=== PATIENT | female | born 1970 | race Caucasian/White ===

== ENCOUNTER 2016-08-23 20:59 | Emergency (ER) | payer MEDICARE, OTHER ==
[~2016-08-23] VITALS: Ht 160 cm; Wt 61.8 kg
[~2016-08-23 20:59] MED LIST: ALPR.5 PO
[2016-08-23 21:14] VITALS: BP 124/86; PULSE 76; RESP 18; TEMP 97.8; O2SAT 100
[2016-08-23] MEDS ORDERED: VALA1TAB PO (21:43)
[2016-08-23] MEDS ORDERED: PRED5PAK PO (21:43)
[2016-08-23] MEDS ORDERED: AUGM875T3 PO (21:43)
--- NOTE | 2016-08-23 22:07 | PD ---
HPI Chief Complaint: Skin Problem Time Seen by Provider: 21:54 Travel History International Travel<30 days: No Contact w/Intl Traveler<30days: No Traveled to known affect area: No History of Present Illness HPI Patient is a 46-year-old female presents to emergency Department with left- sided face pain for approximately the past 4872 hours. Patient states she was in [place] recently when she had onset of pain in the left side of her face. She went to an urgent care center and explained to them how she had noticed some pimples on the left side of her nose. She states that she has not had an overt outbreak of vesicular rash. The physician she saw the urgent care center told her that it could be shingles or trigeminal neuralgia or cellulitis. She was started on valacyclovir as well as low-dose prednisone pack. Patient also discovered some Augmentin she had in her closet from sinusitis she had in July which she did not take and started taking that this morning. She was told by the physician to come to the emergency department she have any eye problems and she states that there was some mild swelling over her left eye and so decided to come in and be seen. No fevers no abdominal pain no nausea vomiting no difficulty with vision. While examining the patient she states the pain comes on in waves and very intense for a few seconds at a time. PFSH Past Medical History Anxiety: Yes Cancer: No Cardiovascular Problems: No Diabetes: No ("PRE- DAIBETIC") Diminished Hearing: No Gastrointestinal Disorders: Yes ("stomach infection") Genitourinary: Yes (pylonephritits) Immune Disorder: No Implanted Vascular Access Dvce: Yes Musculoskeletal: No Neurologic: No Psychiatric: No Reproductive: No Respiratory: No Immunizations Current: Yes Thyroid Disease: Yes ("sometimes hypo, sometimes hyper") Tetanus Vaccination: > 5 Years Influenza Vaccination: No ?: Not LMP: 08-23- : 2 Para: 2 Past Surgical History Body Medical Devices: LEFT BREAST CLIP Section: Yes Gynecologic Surgery: Yes (C SECTION X2) Thoracic Surgery: Yes (BL BREAST AUGMENTATION) Other Surgery: Yes (BREAST AUGMENTATION 2001) Social History Alcohol Use: No Tobacco Use: No Substance Use: No Allergies-Medications (Allergen,Severity, Reaction): Coded Allergies: Bactrim (Verified Allergy, Severe, TONGUE SWELLING, DIZZINESS, 08/23/16) Iodine (Verified Allergy, Severe, PASSED OUT / DIFFICULTY BREATHING / N& V , 08/23/16) Macrobid (Verified Allergy, Intermediate, 08/23/16) Benadryl (Verified Adverse Reaction, Severe, NUMBNESS IN LEGS, 08/23/16) Percocet (Verified Adverse Reaction, Severe, PUTS PT INTO "DEEP SLEEP", ) Reported Meds & Prescriptions Reported Meds & Active Scripts Active Ultram (Tramadol HCl) 50 Mg Tab 50 Mg PO Q6H PRN Prednisone 20 Mg Tab 60 Mg PO DAILY 5 Days Reported Valacyclovir (Valacyclovir HCl) 1 Gm Tab 1,000 Mg PO TID Augmentin (Amoxicillin-Clavulanate) 875-125 Mg Tab 1 Tab PO BID Xanax (Alprazolam) Unknown Strength Tab Unknown Dose PO Q4H PRN Review of Systems Except as stated in HPI: all other systems reviewed are Neg Physical Exam Narrative GENERAL: Well-nourished, well-developed patient. SKIN: No lesion no pimple no comedone no vesicle seen on her face. No Padgett sign. I see no rash and I see no edema of her face. HEAD: Normocephalic. Atraumatic EYES: No scleral icterus. No injection or drainage. No floor seen uptake, no scleral injection, neck shock movements are intact. ENT: TMs clear bilaterally, oropharynx clear moist. NECK: Supple, trachea midline. No JVD or lymphadenopathy. CARDIOVASCULAR: Regular rate and rhythm without murmurs, gallops, or rubs. RESPIRATORY: Breath sounds equal bilaterally. No accessory muscle use. GASTROINTESTINAL: Abdomen soft, non-tender, nondistended. MUSCULOSKELETAL: No cyanosis, or edema. BACK: Nontender without obvious deformity. No CVA tenderness. Data Data Last Documented VS Vital Signs Date Time Temp Pulse Resp B/P Pulse Ox O2 Delivery O2 Flow Rate FiO2 08/23/16 22:58 75 18 120/80 98 08/23/16 21:14 97.8 Orders Proparacaine 0.5% Opth Soln (Alcaine 0.5 (08/23/16 22:15) Fluorescein Strip (Jwgex-X-Vsklzm A.T.) (08/23/16 22:15) Tramadol (Ultram) (08/23/16 22:45) MDM Medical Decision Making Medical Screen Exam Complete: Yes Emergency Medical Condition: Yes Differential Diagnosis Facial pain, trigeminal neuralgia, shingles prodrome seems less likely, dental pain, jaw pain. Narrative Course The time of the patient's pain would suggest a trigeminal neuralgia or TMJ favored over a shingles outbreak. Patient's eye was stained and does not show any evidence of shingles of the eye, there is no dendritic pattern. No ulcer. The patient was started on a 5 mg prednisone dose pack which I think is inadequate whether were dealing with trigeminal neuralgia or shingles prodrome. I have instructed her to discontinue this after the first 10 mg she took today. She will be started on 60 mg daily for the next 5 days. I have checked the Augmentin and there is a 10 day supply remaining and counseled her to go ahead and take this because it is not . Valacyclovir should also be taken. I recommend that she follow up with neurologist and her primary care physician. Discussed return to ED criteria. We'll also prescribe some pain medicine. Discussed with her to take caution and take the tramadol separate from her Xanax for the first dose to see how it affects her before she combines it to medicines. She stable for discharge at this time. Diagnosis Primary Impression: Facial pain Referrals: Geovanny Callahan PhD Med/Other Pt SpecificInfo: Prescription(s) given Scripts Tramadol (Ultram)50 Mg Tab50 Mg PO Q6H PRN (PAIN) #12 TAB Ref 0 Prov:Geoff Goetz MD 08/23/16 Prednisone 20 Mg Tab60 Mg PO DAILY 5 Days Ref 0 Prov:Geoff Goetz MD 08/23/16 Disposition: 01 DISCHARGE HOME Condition: Stable Geoff Goetz MD Aug 23, 2016 22:07
[2016-08-23] MEDS ORDERED: FLUORESCEIN SOD 1 MG STRIP EACH EYE ONE (22:15)
[2016-08-23] MEDS ORDERED: PROPARACAINE HCL 0.5% OPHT SOLN 15 ML BTL EACH EYE ONE (22:15)
[2016-08-23] MEDS ORDERED: PRED20 PO (22:33)
[2016-08-23] MEDS ORDERED: ULTR50TA5 PO (22:33)
[2016-08-23] MEDS ORDERED: traMADol HCL 50 MG TAB PO ONE (22:45)
[2016-08-23 22:58] VITALS: BP 120/80
== END 2016-08-23 23:30 | disposition home or self-care (01) ==
LOC: PHED 20:59
DX: R51 Headache (principal); R73.03 Prediabetes; E07.9 Disorder of thyroid, unspecified
CPT/HCPCS: 99284

== ENCOUNTER 2017-01-11 00:01 | Emergency (ER) | payer MEDICARE, OTHER ==
[~2017-01-11] VITALS: Ht 160 cm; Wt 63.0 kg
[~2017-01-11 00:01] MED LIST changes: +AUGM875T3 PO; +FLUC150T PO; +PRED20 PO; +TERC0.8C VAGINAL; +TRAM50 PO; +VALA1TAB PO
[2017-01-11 00:06] VITALS: BP 97/56; PULSE 89; RESP 16; TEMP 98.2; O2SAT 99
[2017-01-11] MEDS ORDERED: SODIUM CHLORIDE 0.9% FLUSH 10 ML FLUSH IVF PRN (01:45)
[2017-01-11 01:50] VITALS: BP 100/55; PULSE 90; RESP 16; TEMP 98.9; O2SAT 99
--- NOTE | 2017-01-11 02:24 | RADRPT ---
EXAM DATE/TIME: 01/11/2017 01:51 [facility] COMPARISON: CHEST SINGLE AP, June 14, 2013, 1:33. INDICATIONS : Chest pain. MEDICAL HISTORY : None. SURGICAL HISTORY : Breast augmentation. ENCOUNTER: Initial ACUITY: 1 day PAIN SCORE: 0/10 LOCATION: Bilateral chest FINDINGS: A single view of the chest demonstrates the lungs to be symmetrically aerated without evidence of mas s, infiltrate or effusion. The cardiomediastinal contours are unremarkable. Osseous structures are intact. CONCLUSION: 1. No acute cardiopulmonary disease. Robert Chamberlain MD on January 11, 2017 at 2:22 Board Certified Radiologist. This report was verified electronically.
--- NOTE | 2017-01-11 02:27 | PD ---
HPI Chief Complaint: Anxiety Time Seen by Provider: 01:43 Travel History International Travel<30 days: No Contact w/Intl Traveler<30days: No Traveled to known affect area: No History of Present Illness HPI 46-year-old female presents to the emergency department by EMS transport from home where she was noted to have palpitations and rapid heartbeat that awakened her from sleep. Patient states that she went to bed approximately 10:30 PM feeling well and took her normal dose of Xanax. Patient states she awakened from sleep around 11 feeling very anxious with her heart racing. Patient denies disturbance confusion difficulty with speech difficulty swallowing and no upper or lower extremity motor weakness but did notice perioral paresthesias and numbness and tingling of the hands and feet. Patient has history of anxiety and does check Xanax or Ativan as prescribed for anxiety. No recent febrile illness or risk. Illness. Patient has been evaluated before for anxiety with rapid heartbeat. Patient's had no change in her medications. Patient denies chest pain or shortness of breath. Patient denies nausea or vomiting. Patient's had no diaphoresis. Patient's had no referred neck jaw back shoulder arm or abdominal pain. Patient denies hyperthyroidism. PFSH Past Medical History Narrative Medical Anxiety breast augmentation; no tobacco use alcohol use or substance use; nursing notes reviewed Anxiety: Yes Cancer: No Cardiovascular Problems: No Diminished Hearing: No Gastrointestinal Disorders: Yes ("stomach infection") Genitourinary: Yes (pylonephritits) Immune Disorder: No Implanted Vascular Access Dvce: Yes Musculoskeletal: No Neurologic: No Psychiatric: No Reproductive: No Respiratory: No Immunizations Current: Yes Thyroid Disease: Yes ("sometimes hypo, sometimes hyper") ?: Not LMP: 12/29/16 : 2 Para: 2 Past Surgical History Body Medical Devices: LEFT BREAST CLIP Section: Yes Gynecologic Surgery: Yes (C SECTION X2) Thoracic Surgery: Yes (BL BREAST AUGMENTATION) Other Surgery: Yes (BREAST AUGMENTATION 2001) Social History Alcohol Use: No Tobacco Use: No Substance Use: No Allergies-Medications (Allergen,Severity, Reaction): Coded Allergies: acetaminophen (Verified Allergy, Severe, 01/11/17) Sulfa (Sulfonamide Antibiotics) (Verified Allergy, Intermediate, 01/11/17) nitrofurantoin (Verified Allergy, Intermediate, 01/11/17) oxycodone (Verified Allergy, Intermediate, 01/11/17) PUTS PT TO SLEEP sulfamethoxazole (Verified Allergy, Intermediate, 01/11/17) trimethoprim (Verified Allergy, Intermediate, 01/11/17) iodine (Verified Allergy, Unknown, 01/11/17) Reported Meds & Prescriptions Reported Meds & Active Scripts Active Reported Xanax (Alprazolam) Unknown Strength Tab Unknown Dose PO Q4H PRN Review of Systems Except as stated in HPI: all other systems reviewed are Neg General / Constitutional: No: Fever, Chills Eyes: No: Diploplia, Blurred Vision, Photophobia HENT: No: Headaches, Vertigo, Lightheadedness, Neck Pain Cardiovascular: Positive: Palpitations, Tachycardia, No: Chest Pain or Discomfort, Diaphoresis, Syncope Respiratory: No: Cough, Shortness of Breath Gastrointestinal: No: Nausea, Vomiting, Abdominal Pain Genitourinary: No: Flank Pain Musculoskeletal: No: Myalgias, Arthralgias Skin: No Rash Neurologic: No: Weakness, Dizziness, Syncope, Focal Abnormalities, Coordination Problem Psychiatric: No: Anxiety Endocrine: No: Heat Intolerance Hematologic/Lymphatic: No: Easy Bruising Physical Exam Narrative GENERAL: Well-developed well-nourished female in no acute distress no respiratory distress SKIN: Warm and dry. HEAD: Atraumatic. Normocephalic. EYES: Pupils equal and round. No scleral icterus. No injection or drainage. ENT: No nasal bleeding or discharge. Mucous membranes pink and moist. NECK: Trachea midline. No JVD. CARDIOVASCULAR: Regular rate and rhythm. RESPIRATORY: No accessory muscle use. Clear to auscultation. Breath sounds equal bilaterally. GASTROINTESTINAL: Abdomen soft, non-tender, nondistended. Hepatic and splenic margins not palpable. MUSCULOSKELETAL: Extremities without clubbing, cyanosis, or edema. No obvious deformities. NEUROLOGICAL: Awake and alert. No obvious cranial nerve deficits. Motor grossly within normal limits. Five out of 5 muscle strength in the arms and legs. Normal speech. PSYCHIATRIC: Appropriate mood and affect; insight and judgment normal. Data Data Last Documented VS Vital Signs Date Time Temp Pulse Resp B/P (MAP) Pulse Ox O2 Delivery O2 Flow Rate FiO2 01/11/17 05:04 80 16 111/82 (92) 100 01/11/17 01:50 98.9 Room Air Orders Orders Electrocardiogram (01/11/17 01:43) Ed Urine Pregnancytest Poc (01/11/17 01:43) Complete Blood Count With Diff (01/11/17:43) Comprehensive Metabolic Panel (01/11/17:43) Magnesium (Mg) (01/11/17:43) Ckmb (Isoenzyme) Profile (01/11/17:43) Troponin I (01/11/17:43) Act Partial Throm Time (Ptt) (01/11/17:43) Prothrombin Time / Inr (Pt) (01/11/17:43) Urinalysis - C+S If Indicated (01/11/17:43) Chest, Single Ap (01/11/17:43) Ecg Monitoring (01/11/17:43) Iv Access Insert/Monitor (01/11/17:43) Oximetry (01/11/17:43) Sodium Chloride 0.9% Flush (Ns Flush) (01/11/17 01:45) Thyroid Stimulating Hormone (01/11/17:43) Sodium Chlor 0.9% 1000 Ml Inj (Ns 1000 M (01/11/17 03:15) Ed Discharge Order (01/11/17 03:46) Labs Laboratory Tests Test 01/11/17 02:00 White Blood Count 5.8 TH/MM3 Red Blood Count 4.10 MIL/MM3 Hemoglobin 12.4 GM/DL Hematocrit 36.3 % Mean Corpuscular Volume 88.7 FL Mean Corpuscular Hemoglobin 30.1 PG Mean Corpuscular Hemoglobin Concent 34.0 % Red Cell Distribution Width 12.8 % Platelet Count 180 TH/MM3 Mean Platelet Volume 9.7 FL Neutrophils (%) (Auto) 52.4 % Lymphocytes (%) (Auto) 32.4 % Monocytes (%) (Auto) 9.4 % Eosinophils (%) (Auto) 4.5 % Basophils (%) (Auto) 1.3 % Neutrophils # (Auto) 3.0 TH/MM3 Lymphocytes # (Auto) 1.9 TH/MM3 Monocytes # (Auto) 0.5 TH/MM3 Eosinophils # (Auto) 0.3 TH/MM3 Basophils # (Auto) 0.1 TH/MM3 CBC Comment DIFF FINAL Differential Comment Prothrombin Time 10.7 SEC Prothromb Time International Ratio 1.0 RATIO Activated Partial Thromboplast Time 29.4 SEC Urine Color STRAW Urine Turbidity CLEAR Urine pH 6.5 Urine Specific [place] 1.008 Urine Protein NEG mg/dL Urine Glucose (UA) NEG mg/dL Urine Ketones NEG mg/dL Urine Occult Blood NEG Urine Nitrite NEG Urine Bilirubin NEG Urine Leukocyte Esterase NEG Urine Squamous Epithelial Cells 0-5 /hpf Urine Bacteria OCC /hpf Microscopic Urinalysis Comment CULT NOT INDICATED Urine Collection Time Blood Urea Nitrogen 19 MG/DL Creatinine 0.73 MG/DL Random Glucose 87 MG/DL Total Protein 6.8 GM/DL Albumin 3.4 GM/DL Calcium Level 8.4 MG/DL Magnesium Level 2.1 MG/DL Alkaline Phosphatase 46 U/L Aspartate Amino Transf (AST/SGOT) 10 U/L Alanine Aminotransferase (ALT/SGPT) 18 U/L Total Bilirubin 0.2 MG/DL Sodium Level 139 MEQ/L Potassium Level 3.6 MEQ/L Chloride Level 107 MEQ/L Carbon Dioxide Level 26.2 MEQ/L Anion Gap 6 MEQ/L Estimat Glomerular Filtration Rate 87 ML/MIN Total Creatine Kinase 51 U/L Troponin I LESS THAN 0.02 NG/ML Thyroid Stimulating Hormone 3rd Gen 2.270 uIU/ML MDM Medical Decision Making Medical Screen Exam Complete: Yes Emergency Medical Condition: Yes Medical Record Reviewed: Yes Interpretation(s) EKG: Normal sinus rhythm rate [address] elevation injury pattern or ectopy noted Last Impressions Chest X-Ray 01/11/17 0143 Signed Impressions: Service Date/Time: Wednesday, January 11, 2017 01:51 - CONCLUSION: 1. No acute cardiopulmonary disease. Robert Chamberlain MD CBC & BMP Diagram 01/11/17 02:00 Total Protein 6.8, Albumin 3.4, Calcium Level 8.4 L, Magnesium Level 2.1, Alkaline Phosphatase 46, Aspartate Amino Transf (AST/SGOT) 10 L, Alanine Aminotransferase (ALT/SGPT) 18, Total Bilirubin 0.2 Differential Diagnosis Palpitations arrhythmia electrolyte disturbance dehydration adverse medication reaction Narrative Course IV access obtained specimens collected and sent for resulting patient placed on pvc monitor with continuous pulse oximetry EKG sinus rhythm no acute injury pattern change or ectopy noted Chest x-ray no acute process Cardiac enzymes are not elevated; TSH found to be in normal range Patient identified to have significant change in heart rate moving some supine to standing therefore given IV fluid bolus Patient clinically stable for outpatient management and follow-up with her primary care provider Diagnosis Primary Impression: Rapid palpitations Additional Impressions: H/O anxiety state Dehydration, mild Referrals: Primary Care Physician 2 days Patient Instructions: General Instructions Additional Instructions: Increase fluid hydration Continue current medications as presently prescribed Follow-up with her primary care provider call office to schedule follow-up appointment Return to the emergency department for any concerns or change in condition Med/Other Pt SpecificInfo: No Meds Exist/No RX given Disposition: 01 DISCHARGE HOME Condition: Stable Carolyn Bermudez MD Jan 11, 2017 02:27
[2017-01-11 02:33] LABS: BASOPHIL # 0.1 TH/MM3 (0-0.2); BASOPHIL % 1.3 % (0.0-2.0); EOSINOPHIL # 0.3 TH/MM3 (0-0.4); EOSINOPHIL % 4.5 % (0.0-4.0); HEMATOCRIT 36.3 % (35.0-46.0); HEMO FLAGS DIFF FINAL; LYMPH % 32.4 % (9.0-44.0); LYMPHOCYTE # 1.9 TH/MM3 (1.0-4.8); MEAN CELL VOLUME 88.7 FL (80.0-100.0); MEAN CORPUSCULAR HEMOGLOBIN 30.1 PG (27.0-34.0); MONO % 9.4 % (0.0-8.0); NEUT % 52.4 % (16.0-70.0); PLATELET COUNT 180 TH/MM3 (150-450); RED CELL DISTRIBUTION WIDTH 12.8 % (11.6-17.2); WHITE BLOOD COUNT 5.8 TH/MM3 (4.0-11.0)
[2017-01-11 02:38] LABS: CHLORIDE 107 MEQ/L (98-107); POTASSIUM 3.6 MEQ/L (3.5-5.1); SODIUM (NA) 139 MEQ/L (136-145)
[2017-01-11 02:42] LABS: ANION GAP 6 MEQ/L (5-15); BICARBONATE 26.2 MEQ/L (21.0-32.0); BLOOD UREA NITROGEN 19 MG/DL (7-18); MAGNESIUM 2.1 MG/DL (1.5-2.5)
[2017-01-11 02:43] LABS: APTT (PATIENT) 29.4 SEC (24.3-30.1); PROTHROMBIN TIME - PATIENT 10.7 SEC (9.8-11.6)
[2017-01-11 02:45] LABS: ALT (GPT) 18 U/L (10-53); AST (GOT) 10 U/L (15-37); GLOMERULAR FILTRATION RATE 87 ML/MIN (>89)
[2017-01-11 02:46] LABS: TOTAL BILIRUBIN ADULT 0.2 MG/DL (0.2-1.0)
[2017-01-11 02:48] LABS: ALKALINE PHOSPHATASE 46 U/L (45-117)
[2017-01-11 02:51] LABS: BLOOD, URINE NEG (NEG); GLUCOSE,URINE NEG (NEG); KETONE, URINE NEG (NEG); NITRITE,URINE NEG (NEG); PH, URINE 6.5 (5.0-8.5)
[2017-01-11 02:56] LABS: URINE COLOR STRAW (YELLW/STRAW)
[2017-01-11 02:57] LABS: BACTERIA, URINE OCC /hpf; SQUAMOUS EPITHELIAL CELL URINE 0-5 /hpf (0-5)
[2017-01-11 02:58] LABS: COMMENT (UR) CULT NOT INDICATED; CULTURE IF INDICATED CULT NOT INDICATED
[2017-01-11 02:59] LABS: CREATINE KINASE 51 U/L (26-192)
[2017-01-11] MEDS ORDERED: SODIUM CHLOR 0.9% 1000 ML INJ 1,000 ML IV ONE (03:15)
[2017-01-11 03:22] VITALS: BP_SYST 100; BP_SYST 90; BP_SYST 96; BP_DIAS 61; BP_DIAS 69; BP_DIAS 75; RESP 16
[2017-01-11 05:04] VITALS: BP 111/82
--- NOTE | 2017-01-11 18:49 | EKG ---
Date Performed: 01/11/2017 Time Performed: 02:08:01 PTAGE: 46 years EKG: Sinus rhythm WITH MARKED SINUS ARRHYTHMIA BORDERLINE ECG Compared to prior tracing no significant change PREVIOUS TRACING : 06/14/2013 08.34 DOCTOR: Kelsey Benoit Interpretating Date/Time 01/11/2017 18:48:45
== END 2017-01-11 05:07 | disposition home or self-care (01) ==
LOC: PHED 00:01
DX: R00.2 Palpitations (principal); F41.1 Generalized anxiety disorder; E86.0 Dehydration
CPT/HCPCS: 71010; 80053; 81001; 82550; 83735; 84443; 84484; 84703; 85025; 85610; 85730; 93005; 96360; 99285; J7030

== ENCOUNTER 2017-01-24 21:44 | Emergency (ER) | payer MEDICARE, OTHER ==
[~2017-01-24 21:44] MED LIST changes: -AUGM875T3 PO; -FLUC150T PO; -PRED20 PO; -TERC0.8C VAGINAL; -TRAM50 PO; -VALA1TAB PO
[2017-01-24 22:24] VITALS: BP 126/83; PULSE 96; RESP 16; TEMP 98.4; O2SAT 98
--- NOTE | 2017-01-24 22:27 | PD ---
HPI Chief Complaint: Anxiety Time Seen by Provider: 22:12 Travel History International Travel<30 days: No Contact w/Intl Traveler<30days: No Traveled to known affect area: No History of Present Illness HPI 46-year-old female with history of PTSD, anxiety disorder, panic attacks, brought in by ambulance from an inpatient facility where the patient presented voluntarily today for help with her PTSD for evaluation of a panic attack. Patient reports that she takes Xanax prescribed by her primary care physician. She is prescribed 0.5 mg 3 times a day, however states that she usually takes about 0.25 mg 3 times a day. States that her last dose was about 8 hours prior to this attack. She tells me that the facility that she checked herself into is also a rehabilitation facility, therefore does not provide Xanax to their patients. Patient denies suicidal ideation. She is complaining of a slight headache and is requesting some Advil. PFSH Past Medical History Anxiety: Yes (SEVERE, PANIC ATTACKS) Cancer: No Cardiovascular Problems: No Diminished Hearing: No Gastrointestinal Disorders: Yes ("stomach infection") Genitourinary: Yes (pylonephritits) Immune Disorder: No Implanted Vascular Access Dvce: Yes Musculoskeletal: No Neurologic: No Psychiatric: No Reproductive: No Respiratory: No Immunizations Current: Yes Thyroid Disease: Yes ("sometimes hypo, sometimes hyper") ?: Unknown : 2 Para: 2 Past Surgical History Body Medical Devices: LEFT BREAST CLIP Section: Yes Gynecologic Surgery: Yes (C SECTION X2) Thoracic Surgery: Yes (BL BREAST AUGMENTATION) Other Surgery: Yes (BREAST AUGMENTATION 2001) Social History Alcohol Use: No Tobacco Use: No Substance Use: No Allergies-Medications (Allergen,Severity, Reaction): Coded Allergies: acetaminophen (Verified Allergy, Severe, 01/11/17) Sulfa (Sulfonamide Antibiotics) (Verified Allergy, Intermediate, 01/11/17) nitrofurantoin (Verified Allergy, Intermediate, 01/11/17) oxycodone (Verified Allergy, Intermediate, 01/11/17) PUTS PT TO SLEEP sulfamethoxazole (Verified Allergy, Intermediate, 01/11/17) trimethoprim (Verified Allergy, Intermediate, 01/11/17) iodine (Verified Allergy, Unknown, 01/11/17) Reported Meds & Prescriptions Reported Meds & Active Scripts Active Reported Xanax (Alprazolam) Unknown Strength Tab 0.25 PO Q4H PRN Review of Systems Except as stated in HPI: all other systems reviewed are Neg Physical Exam Narrative GENERAL: Well-developed, well-nourished, comfortable, no apparent distress. SKIN: Focused skin assessment warm/dry. HEAD: Atraumatic. Normocephalic. EYES: Pupils equal and round. No scleral icterus. No injection or drainage. ENT: Mucous membranes pink and moist. NECK: Trachea midline. No JVD. CARDIOVASCULAR: Regular rate and rhythm. No murmur appreciated. RESPIRATORY: No accessory muscle use. Clear to auscultation. Breath sounds equal bilaterally. GASTROINTESTINAL: Abdomen soft, non-tender, nondistended. Hepatic and splenic margins not palpable. MUSCULOSKELETAL: No obvious deformities. No clubbing. No cyanosis. No edema. NEUROLOGICAL: Awake and alert. No obvious cranial nerve deficits. Motor grossly within normal limits. Normal speech. PSYCHIATRIC: Appropriate mood and affect; insight and judgment normal. Data Data Last Documented VS Vital Signs Date Time Temp Pulse Resp B/P (MAP) Pulse Ox O2 Delivery O2 Flow Rate FiO2 01/25/17 00:32 88 19 123/90 (101) 98 Room Air 01/24/17 22:24 98.4 Orders Orders Alprazolam (Xanax) (01/24/17 22:30) Ibuprofen (Motrin) (01/24/17 22:30) Acetaminophen (Tylenol) (01/25/17 00:30) [facility] Medical Decision Making Medical Screen Exam Complete: Yes Emergency Medical Condition: Yes Medical Record Reviewed: Yes Differential Diagnosis Panic attack, anxiety Narrative Course Initial vital signs show heart rate 96, blood pressure 126/83, pulse ox 98% on room air, oral temp of 98.4F. Patient was provided Xanax with improvement in her anxiety. While in the emergency department she complained of having a headache. She was written for ibuprofen, however she only took off of it because she was afraid that it might upset her stomach. She continued to complain of a headache, so she was given Tylenol. On reassessment she was sleeping comfortably. There is no nuchal rigidity on exam. She overall looks very comfortable and not believe that there is an infectious etiology or an SAH as the etiology for her headache. The patient seems very concerned about going back to the facility which she voluntarily checked into has they are not providing her Xanax. She asked if I could dispense a dose of Xanax, however I told her I could not. At this point I believe the patient is stable for discharge back to the facility where she is seeking help for her anxiety/PTSD. Diagnosis Primary Impression: Panic attack Referrals: Primary Care Physician 3 days Disposition: 65 DISC TO PSYCH CARE FACILITY Condition: Stable Fredy Fuentes MD Jan 24, 2017 22:27
[2017-01-24] MEDS ORDERED: IBUPROFEN 600 MG TAB PO ONE (22:30)
[2017-01-24] MEDS ORDERED: ALPRAZolam 0.5 MG TAB PO ONE (22:30)
[2017-01-25] MEDS ORDERED: ACETAMINOPHEN 325 MG TAB PO ONE (00:30)
[2017-01-25 00:32] VITALS: BP_SYST 123; BP_SYST 127; BP_DIAS 82; BP_DIAS 90; PULSE 88; PULSE 92; RESP 19; O2SAT 98; O2SAT 99
== END 2017-01-25 01:20 ==
LOC: NEPD 21:44
DX: F41.0 Panic disorder [episodic paroxysmal anxiety] (principal); R51 Headache; F43.10 Post-traumatic stress disorder, unspecified; F41.9 Anxiety disorder, unspecified; E07.9 Disorder of thyroid, unspecified; Z79.899 Other long term (current) drug therapy; Z88.6 Allergy status to analgesic agent; Z88.2 Allergy status to sulfonamides; Z88.5 Allergy status to narcotic agent
CPT/HCPCS: 99283

== ENCOUNTER 2017-02-21 05:43 | Emergency (ER) | payer MEDICARE, OTHER ==
[~2017-02-21] VITALS: Ht 160 cm; Wt 65.0 kg
[2017-02-21 05:46] VITALS: BP 135/84; PULSE 84; RESP 20; TEMP 98.9; O2SAT 98
[2017-02-21] MEDS ORDERED: SODIUM CHLOR 0.9% 1000 ML INJ 1,000 ML IV ONE (06:22)
[2017-02-21] MEDS ORDERED: SODIUM CHLORIDE 0.9% FLUSH 10 ML FLUSH IVF PRN (06:30)
[2017-02-21] MEDS ORDERED: ONDANSETRON HCL 4 MG/2 ML VIAL IVP ONE (06:30)
[2017-02-21] MEDS: MECLIZINE HCL 25 MG TAB PO ONE ×2 (06:30→06:48)
--- NOTE | 2017-02-21 06:30 | PD ---
HPI Chief Complaint: Dizziness Time Seen by Provider: 05:54 Travel History International Travel<30 days: No Contact w/Intl Traveler<30days: No Traveled to known affect area: No History of Present Illness HPI 46-year-old female arrives to the ER due to dizziness. It started yesterday evening. She has been tapering down her Xanax dosing from 1.5 mg a day to 0.5 mg a day. She reports taking 0.25 mg just prior to leaving her house for the ER evaluation and states that it has been somewhat helpful. She describes a vertiginous dizziness associated with nausea and vomiting. No otalgia or otorrhea reported. No chest pain or shortness of breath reported. She denies similar prior episodes of vertigo. No loss of consciousness or falls. PFSH Past Medical History Anxiety: Yes (SEVERE, PANIC ATTACKS) Cancer: No Cardiovascular Problems: No Diminished Hearing: No Gastrointestinal Disorders: Yes Genitourinary: Yes Immune Disorder: No Implanted Vascular Access Dvce: Yes Musculoskeletal: No Neurologic: No Psychiatric: No Reproductive: No Respiratory: No Immunizations Current: Yes Thyroid Disease: Yes (THYROID NODULE) ?: Not : 2 Para: 2 Past Surgical History Body Medical Devices: LEFT BREAST CLIP Section: Yes (X2) Gynecologic Surgery: Yes (C SECTION X2) Thoracic Surgery: Yes (BL BREAST AUGMENTATION) Other Surgery: Yes (BREAST AUGMENTATION 2001) Social History Alcohol Use: No Tobacco Use: No Substance Use: No Allergies-Medications (Allergen,Severity, Reaction): Coded Allergies: acetaminophen (Verified Allergy, Severe, 02/21/17) Sulfa (Sulfonamide Antibiotics) (Verified Allergy, Intermediate, 02/21/17) nitrofurantoin (Verified Allergy, Intermediate, 02/21/17) oxycodone (Verified Allergy, Intermediate, 02/21/17) PUTS PT TO SLEEP sulfamethoxazole (Verified Allergy, Intermediate, 02/21/17) trimethoprim (Verified Allergy, Intermediate, 02/21/17) iodine (Verified Allergy, Unknown, 02/21/17) Reported Meds & Prescriptions Reported Meds & Active Scripts Active Reported Xanax (Alprazolam) Unknown Strength Tab 0.25 PO Q4H PRN Review of Systems Except as stated in HPI: all other systems reviewed are Neg General / Constitutional: No: Fever Cardiovascular: No: Chest Pain or Discomfort Respiratory: No: Shortness of Breath Gastrointestinal: Positive: Nausea, Vomiting Physical Exam Narrative GENERAL: 46-year-old female pleasant well-nourished well-developed no acute distress SKIN: Warm and dry. HEAD: Atraumatic. Normocephalic. EYES: Pupils equal and round. No scleral icterus. No injection or drainage. No nystagmus. ENT: No nasal bleeding or discharge. Mucous membranes pink and moist. There is minimal cerumen collection bilaterally NECK: Trachea midline. No JVD. CARDIOVASCULAR: Regular rate and rhythm. RESPIRATORY: No accessory muscle use. Clear to auscultation. Breath sounds equal bilaterally. GASTROINTESTINAL: Abdomen soft, non-tender, nondistended. Hepatic and splenic margins not palpable. MUSCULOSKELETAL: Extremities without clubbing, cyanosis, or edema. No obvious deformities. NEUROLOGICAL: Awake and alert. No obvious cranial nerve deficits. Motor grossly within normal limits. Five out of 5 muscle strength in the arms and legs. Normal speech. PSYCHIATRIC: Appropriate mood and affect; insight and judgment normal. Data Data Last Documented VS Vital Signs Date Time Temp Pulse Resp B/P (MAP) Pulse Ox O2 Delivery O2 Flow Rate FiO2 02/21/17 06:48 100 Room Air 02/21/17 06:48 87 18 79 18 69 18 02/21/17 05:46 98.9 Vital signs reviewed Orders Orders Basic Metabolic Panel (Bmp) (02/21/17 06:22) Complete Blood Count With Diff (02/21/17 06:22) Ecg Monitoring (02/21/17 06:22) Iv Access Insert/Monitor (02/21/17 06:22) Oximetry (02/21/17 06:22) Meclizine (Antivert) (02/21/17 06:30) Ondansetron Inj (Zofran Inj) (02/21/17 06:30) Sodium Chloride 0.9% Flush (Ns Flush) (02/21/17 06:30) Sodium Chlor 0.9% 1000 Ml Inj (Ns 1000 M (02/21/17 06:22) Orthostatic Vital Signs (02/21/17 06:22) Labs Laboratory Tests Test 02/21/17 06:45 [facility] Medical Decision Making Medical Screen Exam Complete: Yes Emergency Medical Condition: Yes Medical Record Reviewed: Yes Differential Diagnosis Dehydration, vertigo, benzodiazepine withdrawal Narrative Course Symptoms are considered most probably secondary to Xanax withdrawal. Patient refuses benzodiazepines here, not unreasonable. We will administer a liter saline meclizine and Zofran. Lab work added on with the anticipation of the results being within normal range. Oncoming provider to follow-up blood results and disposition patient following reassessment. Case d/w oncoming provider at 7AM. Disposition: 01 DISCHARGE HOME Condition: Stable Jeovanny Felton MD Feb 21, 2017 06:30
[2017-02-21 06:48] VITALS: BP_SYST 108; BP_SYST 116; BP_SYST 121; BP_DIAS 67; BP_DIAS 70; BP_DIAS 73; RESP 18; O2SAT 100
[2017-02-21 06:56] LABS: AUTOMATED NEUTROPHIL # 1.4 TH/MM3 (1.8-7.7); BASOPHIL % 1.3 % (0.0-2.0); EOSINOPHIL # 0.3 TH/MM3 (0-0.4); EOSINOPHIL % 7.9 % (0.0-4.0); HEMATOCRIT 37.6 % (35.0-46.0); HEMOGLOBIN 12.9 GM/DL (11.6-15.3); LYMPH % 43.2 % (9.0-44.0); LYMPHOCYTE # 1.6 TH/MM3 (1.0-4.8); MEAN CELL VOLUME 89.2 FL (80.0-100.0); MEAN CORPUSCULAR HEMOGLOBIN 30.5 PG (27.0-34.0); MEAN CORPUSCULAR HGB CONC 34.2 % (32.0-36.0); MEAN PLATELET VOLUME 9.1 FL (7.0-11.0); MONO % 9.4 % (0.0-8.0); MONOCYTE # 0.4 TH/MM3 (0-0.9); NEUT % 38.2 % (16.0-70.0); PLATELET COUNT 183 TH/MM3 (150-450); RED BLOOD COUNT 4.22 MIL/MM3 (4.00-5.30); RED CELL DISTRIBUTION WIDTH 13.7 % (11.6-17.2); WHITE BLOOD COUNT 3.8 TH/MM3 (4.0-11.0)
[2017-02-21 07:09] LABS: BICARBONATE 28.8 MEQ/L (21.0-32.0); CALCIUM 8.7 MG/DL (8.5-10.1); CREATININE 0.68 MG/DL (0.50-1.00)
--- NOTE | 2017-02-21 07:30 | PD ---
Data Data Last Documented VS Orders Orders Basic Metabolic Panel (Bmp) (02/21/17 06:22) Complete Blood Count With Diff (02/21/17 06:22) Ecg Monitoring (02/21/17 06:22) Iv Access Insert/Monitor (02/21/17 06:22) Oximetry (02/21/17 06:22) Meclizine (Antivert) (02/21/17 06:30) Ondansetron Inj (Zofran Inj) (02/21/17 06:30) Sodium Chloride 0.9% Flush (Ns Flush) (02/21/17 06:30) Sodium Chlor 0.9% 1000 Ml Inj (Ns 1000 M (02/21/17 06:22) Orthostatic Vital Signs (02/21/17 06:22) Ed Discharge Order (02/21/17 07:45) Labs Laboratory Tests Test 02/21/17 06:45 White Blood Count 3.8 TH/MM3 Red Blood Count 4.22 MIL/MM3 Hemoglobin 12.9 GM/DL Hematocrit 37.6 % Mean Corpuscular Volume 89.2 FL Mean Corpuscular Hemoglobin 30.5 PG Mean Corpuscular Hemoglobin Concent 34.2 % Red Cell Distribution Width 13.7 % Platelet Count 183 TH/MM3 Mean Platelet Volume 9.1 FL Neutrophils (%) (Auto) 38.2 % Lymphocytes (%) (Auto) 43.2 % Monocytes (%) (Auto) 9.4 % Eosinophils (%) (Auto) 7.9 % Basophils (%) (Auto) 1.3 % Neutrophils # (Auto) 1.4 TH/MM3 Lymphocytes # (Auto) 1.6 TH/MM3 Monocytes # (Auto) 0.4 TH/MM3 Eosinophils # (Auto) 0.3 TH/MM3 Basophils # (Auto) 0.0 TH/MM3 CBC Comment DIFF FINAL Differential Comment Blood Urea Nitrogen 12 MG/DL Creatinine 0.68 MG/DL Random Glucose 108 MG/DL Calcium Level 8.7 MG/DL Sodium Level 137 MEQ/L Potassium Level 3.3 MEQ/L Chloride Level 101 MEQ/L Carbon Dioxide Level 28.8 MEQ/L Anion Gap 7 MEQ/L Estimat Glomerular Filtration Rate 94 ML/MIN [facility] Supervised Visit with UZAIR: No Narrative Course Patient care assumed from Dr. Felton at 0700. Patient on my examination and history has classic vertigo, highly positional. TMs are clear bilaterally, she is feeling better with medications administered, basic labs are reassuring. Remainder of her neurologic exam is completely within normal limits. No indication for further workup at this time. Discussed symptomatic management follow-up with her prescribing physician. Discussed return to ED criteria. Diagnosis Primary Impression: BPPV (benign paroxysmal positional vertigo) Qualified Codes: H81.10 - Benign paroxysmal vertigo, unspecified ear Med/Other Pt SpecificInfo: Prescription(s) given Scripts Meclizine (Meclizine) 25 Mg Tab 25 MG PO TID Y for VERTIGO, #20 TAB 0 Refills Prov: Geoff Goezt MD 02/21/17 Ondansetron (Zofran) 4 Mg Tab 4 MG PO Q6HR Y for NAUSEA OR VOMITING, #20 TAB 0 Refills Prov: Geoff Goetz MD 02/21/17 Disposition: 01 DISCHARGE HOME Condition: Stable Geoff Goetz MD Feb 21, 2017 07:30
[2017-02-21] MEDS ORDERED: ZOFR4TAB PO (07:43)
[2017-02-21] MEDS ORDERED: MECL-62 PO (07:43)
[2017-02-21 08:08] VITALS: BP 128/72
== END 2017-02-21 08:10 | disposition home or self-care (01) ==
LOC: NEPC 05:43
DX: H81.10 Benign paroxysmal vertigo, unspecified ear (principal)
CPT/HCPCS: 80048; 85025; 96361; 96374; 99284; J2405; J7030

== ENCOUNTER 2017-03-14 13:18 | Emergency (ER) | payer MEDICARE, OTHER ==
[~2017-03-14] VITALS: Ht 160 cm; Wt 64.0 kg
[~2017-03-14 13:18] MED LIST changes: +MECL-62 PO; +ZOFR4TAB PO
[2017-03-14 13:24] VITALS: BP 124/65; PULSE 84; RESP 16; TEMP 98.2; O2SAT 99
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
[2017-03-14] MEDS ORDERED: IBUP1TAB7 PO (15:04)
[2017-03-14] MEDS ORDERED: CYCL10TA PO (15:04)
== END 2017-03-14 15:11 | disposition home or self-care (01) ==
LOC: PHEFT 13:18
DX: S29.012A Strain of muscle and tendon of back wall of thorax, initial encounter (principal); Y04.0XXA Assault by unarmed brawl or fight, initial encounter; E04.1 Nontoxic single thyroid nodule; F41.0 Panic disorder [episodic paroxysmal anxiety]
CPT/HCPCS: 72125; 72128

== ENCOUNTER 2017-05-23 22:01 | Emergency (ER) | payer OTHER, MEDICARE ==
[~2017-05-23] VITALS: Ht 160 cm; Wt 65.3 kg
[~2017-05-23 22:01] MED LIST changes: +CYCL10TA PO; +IBUP1TAB7 PO; -MECL-62 PO; -ZOFR4TAB PO
[2017-05-23 22:11] VITALS: BP 123/68; PULSE 83; RESP 16; TEMP 98.8; O2SAT 98
--- NOTE | 2017-05-23 22:44 | PD ---
HPI Chief Complaint: Fall Time Seen by Provider: 22:35 Travel History International Travel<30 days: No Contact w/Intl Traveler<30days: No Traveled to known affect area: No History of Present Illness HPI 47-year-old female here for evaluation of low back pain, right wrist pain, and left knee pain after slipping on a slippery surface at [employer] this evening. She reenacted how she fell and it looks as though her left leg went forward, right leg went back, and her right hand hit the ground. She denies head injury or LOC. Pain is moderate, constant, worse with movements. No direct low back trauma. She was able to ambulate after the fall. She stopped at a drug store and picked up ibuprofen which she took prior to coming to the emergency department. [facility] Past Medical History Anxiety: Yes (SEVERE, PANIC ATTACKS) Cancer: No Cardiovascular Problems: No Diminished Hearing: No Gastrointestinal Disorders: Yes Genitourinary: Yes Immune Disorder: No Implanted Vascular Access Dvce: Yes Musculoskeletal: No Neurologic: No Psychiatric: No Reproductive: No Respiratory: No Immunizations Current: Yes Thyroid Disease: Yes (THYROID NODULE) Tetanus Vaccination: < 5 Years Influenza Vaccination: No ?: Unknown LMP: SPOTTING NOW : 2 Para: 2 Past Surgical History Body Medical Devices: LEFT BREAST CLIP Section: Yes (X2) Gynecologic Surgery: Yes (C SECTION X2) Thoracic Surgery: Yes (BL BREAST AUGMENTATION) Other Surgery: Yes (BREAST AUGMENTATION 2001) Social History Alcohol Use: No Tobacco Use: No Substance Use: No Allergies-Medications (Allergen,Severity, Reaction): Coded Allergies: acetaminophen (Verified Allergy, Severe, 03/14/17) Sulfa (Sulfonamide Antibiotics) (Verified Allergy, Intermediate, 03/14/17) nitrofurantoin (Verified Allergy, Intermediate, 03/14/17) oxycodone (Verified Allergy, Intermediate, 03/14/17) PUTS PT TO SLEEP sulfamethoxazole (Verified Allergy, Intermediate, 03/14/17) trimethoprim (Verified Allergy, Intermediate, 03/14/17) iodine (Verified Allergy, Unknown, 03/14/17) Reported Meds & Prescriptions Reported Meds & Active Scripts Active Flexeril (Cyclobenzaprine HCl) 10 Mg Tab 10 Mg PO TID Ibuprofen 800 Mg Tab 800 Mg PO Q8H PRN Reported Xanax (Alprazolam) Unknown Strength Tab 0.25 PO Q4H PRN Review of Systems Except as stated in HPI: all other systems reviewed are Neg Physical Exam Narrative GENERAL: Well-developed, well-nourished, comfortable, no apparent distress. SKIN: Focused skin assessment warm/dry. Mild ecchymosis to right lateral/ anterior wrist. No lacerations. HEAD: Atraumatic. Normocephalic. EYES: Pupils equal and round. No scleral icterus. No injection or drainage. ENT: Mucous membranes pink and moist. NECK: Trachea midline. No JVD. No midline cervical spine step-off or tenderness. CARDIOVASCULAR: Regular rate and rhythm. RESPIRATORY: No accessory muscle use. Clear to auscultation. Breath sounds equal bilaterally. GASTROINTESTINAL: Abdomen soft, non-tender, nondistended. Hepatic and splenic margins not palpable. MUSCULOSKELETAL: Left knee without obvious deformity, with moderate anterior tenderness, with normal range of motion in extension. Right wrist with skin exam as above with mild tenderness along the right distal radius without obvious bony deformity. Mild midline lumbar spine tenderness without step-off. No midline thoracic spine or cervical spine tenderness or step-off. NEUROLOGICAL: Awake and alert. No obvious cranial nerve deficits. Motor grossly within normal limits. Normal speech. PSYCHIATRIC: Appropriate mood and affect; insight and judgment normal. Data Data Last Documented VS Vital Signs Date Time Temp Pulse Resp B/P (MAP) Pulse Ox O2 Delivery O2 Flow Rate FiO2 05/23/17 22:11 98.8 83 16 123/68 (86) 98 Orders Orders Spine, Lumbar Comp W/Obliq (05/23/17 ) Wrist, Complete ([id number]) (05/23/17 ) Knee, Complete (4vws) (05/23/17 ) Ed Discharge Order (05/23/17 23:26) Ibuprofen (Motrin) (05/23/17 23:45) MDM Medical Decision Making Medical Screen Exam Complete: Yes Emergency Medical Condition: Yes Differential Diagnosis Right wrist contusion versus fracture, left knee contusion versus sprain versus fracture, low back strain versus vertebral injury Narrative Course Vital signs show heart rate 83, blood pressure 123/68, pulse ox 98% on room air , oral temperature 98.8F. Right wrist x-ray: No evidence of recent bony injury. Lumbar spine x-ray: No evidence of compression deformity or spondylolisthesis. Left knee x-ray: No evidence of recent bony injury. The patient was made aware of all findings. She is resting comfortably. She is stable for discharge home with outpatient follow-up with a primary care physician this week. Ibuprofen/tylenol for pain. She was advised on when to return to the emergency department. She verbalizes understanding and agreement with plan. Diagnosis Primary Impression: Fall from slipping on wet surface Qualified Codes: W01.0XXA - Fall on same level from slipping, tripping and stumbling without subsequent striking against object, initial encounter Additional Impressions: Contusion of right wrist Qualified Codes: S60.211A - Contusion of right wrist, initial encounter Low back strain Qualified Codes: S39.012A - Strain of muscle, fascia and tendon of lower back , initial encounter Left knee injury Qualified Codes: S89.92XA - Unspecified injury of left lower leg, initial encounter Referrals: Primary Care Physician 3 days Additional Instructions: Follow-up with a primary care physician this week. Return to the emergency department for worsening symptoms or any other concerns. Scripts Ibuprofen (Ibuprofen) 600 Mg Tab 600 MG PO Q6H Y for Pain/Inflammation, #40 TAB 0 Refills Prov: Fredy Fuentes MD 05/23/17 Disposition: 01 DISCHARGE HOME Condition: Stable Fredy Fuentes MD May 23, 2017 22:44
--- NOTE | 2017-05-23 23:12 | RADRPT ---
EXAM DATE/TIME: 05/23/2017 22:38 [facility] COMPARISON: No previous studies available for comparison. INDICATIONS : Right wrist pain after slipping and falling. MEDICAL HISTORY : None. SURGICAL HISTORY : None. ENCOUNTER: Initial ACUITY: 1 day PAIN SCORE: 7/10 LOCATION: Right wrist. FINDINGS: Three view examination of the right wrist demonstrates no soft tissue swelling, dislocation, or fract ure. The carpal bones are in normal alignment. The joint spaces are maintained. Bony mineralizatio n is normal. CONCLUSION: No evidence of recent bony injury. Jeovanny Schwartz MD on May 23, 2017 at 23:10 Board Certified Radiologist. This report was verified electronically.
--- NOTE | 2017-05-23 23:12 | RADRPT ---
EXAM DATE/TIME: 05/23/2017 22:38 [facility] COMPARISON: No previous studies available for comparison. INDICATIONS : Lower back pain after slipping and falling. MEDICAL HISTORY : None. SURGICAL HISTORY : None. ENCOUNTER: Initial ACUITY: 1 day PAIN SCORE: 7/10 LOCATION: lumbar spine. FINDINGS: There are five non-rib bearing vertebral bodies. The vertebral bodies are in normal alignment withou t evidence of subluxation or scoliosis. The disc spaces are maintained. The posterior elements are intact without evidence of spondylolysis. Incidental note of partial sacralization of L5 the left. The pedicles are intact. Bony mineralization is normal. No fracture is identified. CONCLUSION: No evidence of compression deformity or spondylolisthesis. Jeovanny Schwartz MD on May 23, 2017 at 23:09 Board Certified Radiologist. This report was verified electronically.
--- NOTE | 2017-05-23 23:12 | RADRPT ---
EXAM DATE/TIME: 05/23/2017 22:56 [facility] COMPARISON: No previous studies available for comparison. INDICATIONS : Medial and posterior left knee pain after slipping and falling. MEDICAL HISTORY : None. SURGICAL HISTORY : None. ENCOUNTER: Initial ACUITY: 1 day PAIN SCORE: 8/10 LOCATION: Left knee FINDINGS: Four view examination of the left knee demonstrates no evidence of fracture or dislocation. Bony min eralization is normal. The articular surfaces are intact. The suprapatellar soft tissues have a nor mal configuration. CONCLUSION: No evidence of recent bone injury. A Jeovanny Schwartz MD on May 23, 2017 at 23:11 Board Certified Radiologist. This report was verified electronically.
[2017-05-23] MEDS ORDERED: IBUP-232 PO (23:40)
[2017-05-23] MEDS ORDERED: IBUPROFEN 400 MG TAB PO ONE (23:45)
== END 2017-05-24 00:09 | disposition home or self-care (01) ==
LOC: PHEFT 22:01
DX: S60.211A Contusion of right wrist, initial encounter (principal); S39.012A Strain of muscle, fascia and tendon of lower back, initial encounter; S89.92XA Unspecified injury of left lower leg, initial encounter; W01.0XXA Fall on same level from slipping, tripping and stumbling without subsequent striking against object, initial encounter
CPT/HCPCS: 72110; 73110; 73564; 99284

== ENCOUNTER 2017-07-25 16:23 | Emergency (ER) | payer MEDICARE, OTHER ==
[~2017-07-25] VITALS: Ht 160 cm; Wt 64.4 kg
[~2017-07-25 16:23] MED LIST changes: +IBUP-232 PO
[2017-07-25 16:32] VITALS: BP 122/75; PULSE 79; RESP 18; TEMP 97.4; O2SAT 97
[2017-07-25] MEDS ORDERED: traMADol HCL 50 MG TAB PO ONE (17:00)
[2017-07-25] MEDS ORDERED: LIDOCAINE VISCOUS 2% SOLN 15 ML UDC PO ONE (17:00)
[2017-07-25] MEDS ORDERED: SODIUM CHLORIDE 0.9% FLUSH 10 ML FLUSH IV FLUSH PRN (17:00)
[2017-07-25] MEDS ORDERED: ALUMINUM/MAGNESIUM/SIMETH 30 ML CUP PO ONE (17:00)
[2017-07-25] MEDS ORDERED: KETOROLAC TROMETHAMINE 10 MG TAB PO ONE ×2 (17:15→18:15)
--- NOTE | 2017-07-25 17:21 | PD ---
HPI Chief Complaint: Abdominal Pain Time Seen by Provider: 16:47 Travel History International Travel<30 days: No Contact w/Intl Traveler<30days: No Traveled to known affect area: No History of Present Illness HPI 47-year-old female complains of abdominal pain in the epigastrium. The duration has been 1 week. For the past 2 days it has been very uncomfortable bordering on severe. Associated symptoms include bloating. Appetite is been normal. Tylenol and Advil Pepto-Bismol were not helpful. Jeovanny was not helpful. She reports loose stool today. No fever or vomiting. No similar prior episodes. No abnormal vaginal discharge or bleeding. Last menstruation was normal. No urinary complaint. Patient states she does not like pain medication and would like 1/4 of one tablet of the lowest strength pain medication available. PFSH Past Medical History Anxiety: Yes (SEVERE, PANIC ATTACKS) Cancer: No Cardiovascular Problems: No Diminished Hearing: No Gastrointestinal Disorders: Yes Genitourinary: Yes Immune Disorder: No Implanted Vascular Access Dvce: Yes Musculoskeletal: No Neurologic: No Psychiatric: No Reproductive: No Respiratory: No Immunizations Current: Yes Thyroid Disease: Yes (THYROID NODULE) LMP: JULY 15 : 2 Para: 2 Past Surgical History Body Medical Devices: LEFT BREAST CLIP Section: Yes (X2) Gynecologic Surgery: Yes (C SECTION X2) Thoracic Surgery: Yes (BL BREAST AUGMENTATION) Other Surgery: Yes (BREAST AUGMENTATION 2001) Social History Alcohol Use: No Tobacco Use: No Substance Use: No Allergies-Medications (Allergen,Severity, Reaction): Coded Allergies: Sulfa (Sulfonamide Antibiotics) (Verified Allergy, Intermediate, 07/25/17) clotrimazole (Verified Allergy, Intermediate, 07/25/17) nitrofurantoin (Verified Allergy, Intermediate, 07/25/17) oxycodone (Verified Allergy, Intermediate, 07/25/17) PUTS PT TO SLEEP sulfamethoxazole (Verified Allergy, Intermediate, 07/25/17) trimethoprim (Verified Allergy, Intermediate, 07/25/17) iodine (Verified Allergy, Unknown, 07/25/17) Reported Meds & Prescriptions Reported Meds & Active Scripts Active Ibuprofen 600 Mg Tab 600 Mg PO Q6H PRN Flexeril (Cyclobenzaprine HCl) 10 Mg Tab 10 Mg PO TID Ibuprofen 800 Mg Tab 800 Mg PO Q8H PRN Reported Xanax (Alprazolam) Unknown Strength Tab 0.25 PO Q4H PRN Review of Systems Except as stated in HPI: all other systems reviewed are Neg General / Constitutional: No: Fever Physical Exam Narrative GENERAL: 47-year-old female pleasant well-nourished well-developed, moderate distress Vital Signs Date Time Temp Pulse Resp B/P (MAP) Pulse Ox O2 Delivery O2 Flow Rate FiO2 07/25/17 16:32 97.4 79 18 122/75 (91) 97 SKIN: Warm and dry. HEAD: Atraumatic. Normocephalic. EYES: Pupils equal and round. No scleral icterus. No injection or drainage. ENT: No nasal bleeding or discharge. Mucous membranes pink and moist. NECK: Trachea midline. No JVD. CARDIOVASCULAR: Regular rate and rhythm. RESPIRATORY: No accessory muscle use. Clear to auscultation. Breath sounds equal bilaterally. GASTROINTESTINAL: Soft. Generalized nonspecific tenderness. No focal bulge or mass. MUSCULOSKELETAL: Extremities without clubbing, cyanosis, or edema. No obvious deformities. NEUROLOGICAL: Awake and alert. No obvious cranial nerve deficits. Motor grossly within normal limits. Five out of 5 muscle strength in the arms and legs. Normal speech. PSYCHIATRIC: Appropriate mood and affect; insight and judgment normal. Data Data Last Documented VS Vital Signs Date Time Temp Pulse Resp B/P (MAP) Pulse Ox O2 Delivery O2 Flow Rate FiO2 07/25/17 16:32 97.4 79 18 122/75 (91) 97 Orders Orders Complete Blood Count With Diff (07/25/17 16:48) Comprehensive Metabolic Panel (07/25/17 16:48) Lipase (07/25/17 16:48) Urinalysis - C+S If Indicated (07/25/17 16:48) Iv Access Insert/Monitor (07/25/17 16:48) Ecg Monitoring (07/25/17 16:48) Oximetry (07/25/17 16:48) Sodium Chloride 0.9% Flush (Ns Flush) (07/25/17 17:00) Al-Mag Hy-Si 40-40-4 Mg/Ml Liq (Mag-Al P (07/25/17 17:00) Lidocaine 2% Viscous (Xylocaine 2% Visco (07/25/17 17:00) Ed Urine Pregnancytest Poc (07/25/17 16:48) Ct Abd/Pel W/O Iv Contrast (07/25/17 ) Tramadol (Ultram) (07/25/17 17:00) Ed Urine Pregnancytest Poc (07/25/17 16:48) Ketorolac (Toradol) (07/25/17 17:15) Pill Splitter (Pill Splitter) (07/25/17 17:30) Ketorolac (Toradol) (07/25/17 18:15) Labs Laboratory Tests Test 07/25/17 17:45 07/25/17 17:50 Urine Color YELLOW Urine Turbidity CLEAR Urine pH 6.0 Urine Specific [place] 1.025 Urine Protein NEG mg/dL Urine Glucose (UA) NEG mg/dL Urine Ketones NEG mg/dL Urine Occult Blood SMALL Urine Nitrite NEG Urine Bilirubin NEG Urine Urobilinogen 0.2 MG/DL Urine Leukocyte Esterase NEG Urine WBC 0-2 /hpf Urine Squamous Epithelial Cells 0-5 /hpf Microscopic Urinalysis Comment CULT NOT INDICATED White Blood Count 6.7 TH/MM3 Red Blood Count 4.51 MIL/MM3 Hemoglobin 13.6 GM/DL Hematocrit 40.3 % Mean Corpuscular Volume 89.2 FL Mean Corpuscular Hemoglobin 30.1 PG Mean Corpuscular Hemoglobin Concent 33.8 % Red Cell Distribution Width 12.7 % Platelet Count 208 TH/MM3 Mean Platelet Volume 9.5 FL Neutrophils (%) (Auto) 55.9 % Lymphocytes (%) (Auto) 27.4 % Monocytes (%) (Auto) 6.0 % Eosinophils (%) (Auto) 9.8 % Basophils (%) (Auto) 0.9 % Neutrophils # (Auto) 3.7 TH/MM3 Lymphocytes # (Auto) 1.8 TH/MM3 Monocytes # (Auto) 0.4 TH/MM3 Eosinophils # (Auto) 0.7 TH/MM3 Basophils # (Auto) 0.1 TH/MM3 CBC Comment DIFF FINAL Differential Comment Blood Urea Nitrogen 17 MG/DL Creatinine 0.74 MG/DL Random Glucose 85 MG/DL Total Protein 7.5 GM/DL Albumin 3.8 GM/DL Calcium Level 9.4 MG/DL Alkaline Phosphatase 51 U/L Aspartate Amino Transf (AST/SGOT) 16 U/L Alanine Aminotransferase (ALT/SGPT) 28 U/L Total Bilirubin 0.2 MG/DL Sodium Level 139 MEQ/L Potassium Level 3.8 MEQ/L Chloride Level 105 MEQ/L Carbon Dioxide Level 30.2 MEQ/L Anion Gap 4 MEQ/L Estimat Glomerular Filtration Rate 85 ML/MIN Lipase 243 U/L MDM Medical Decision Making Medical Screen Exam Complete: Yes Emergency Medical Condition: Yes Medical Record Reviewed: Yes Differential Diagnosis Constipation, Gastritis, Acute Cholecystitis, Biliary Colic, Pancreatitis, BUNN , Hepatitis, Bowel Obstruction, Cystitis, Mesenteric Ischemia, AAA, Appendicitis , Renal Stone/Hydronephrosis, GERD, perforated viscous Narrative Course Patient agreed to 5 mg Toradol tablet. At the time of reassessment, 6:30 PM, patient reported market in near immediate improvement after. Workup is essentially unremarkable. Gastritis is a concern. Follow-up with patient's pre owned sales consultant. Diagnosis Primary Impression: Abdominal pain Qualified Codes: R10.9 - Unspecified abdominal pain Referrals: [employer] Supervisor call for appointment Med/Other Pt SpecificInfo: Prescription(s) given Scripts Aluminum Hydroxide-Mag Carb Liq (Gaviscon Extra Strength R Liq) 508-475 Mg/10 Ml Susp 10-20 ML PO QID Y for HEARTBURN for 7 Days, ML 0 Refills Maximum 80 mL/24 hrs. Prov: Jeovanny Felton MD 07/25/17 Disposition: 01 DISCHARGE HOME Condition: Stable Jeovanny Felton MD July 25, 2017 17:21
--- NOTE | 2017-07-25 17:28 | RADRPT ---
EXAM DATE/TIME: 07/25/2017 17:09 [facility] COMPARISON: No previous studies available for comparison. INDICATIONS : Epigastric pain. ORAL CONTRAST: No oral contrast ingested. RADIATION DOSE: 9.11 CTDIvol (mGy) MEDICAL HISTORY : None SURGICAL HISTORY : section. ENCOUNTER: Initial ACUITY: 2 days PAIN SCALE: 9/10 LOCATION: upper quadrant TECHNIQUE: Volumetric scanning of the abdomen and pelvis was performed. Using automated exposure control and ad justment of the mA and/or kV according to patient size, radiation dose was kept as low as reasonably achievable to obtain optimal diagnostic quality images. DICOM format image data is available electro nically for review and comparison. FINDINGS: LOWER LUNGS: The visualized lower lungs are clear. LIVER: Homogeneous density without lesion. There is no dilation of the biliary tree. No calcified gallston es. SPLEEN: Normal size without lesion. PANCREAS: Within normal limits. KIDNEYS: Normal in size and shape. There is no mass, stone, or hydronephrosis. ADRENAL GLANDS: Within normal limits. VASCULAR: There is no aortic aneurysm. BOWEL/MESENTERY: The stomach, small bowel, and colon demonstrate no acute abnormality. There is no free intraperitone al air or fluid. ABDOMINAL WALL: Within normal limits. RETROPERITONEUM: There is no lymphadenopathy. BLADDER: No wall thickening or mass. REPRODUCTIVE: Within normal limits. INGUINAL: There is no lymphadenopathy or hernia. MUSCULOSKELETAL: Within normal limits for patient age. CONCLUSION: No acute noncontrast CT findings in the abdomen or pelvis. Raymond Mcdonald MD on July 25, 2017 at 17:24 Board Certified Radiologist. This report was verified electronically.
[2017-07-25] MEDS ORDERED: PILL SPLITTER OTHER PRN (17:30)
[2017-07-25 18:00] LABS: BILIRUBIN, URINE NEG (NEG); BLOOD, URINE SMALL (NEG); GLUCOSE,URINE NEG (NEG); KETONE, URINE NEG (NEG); NITRITE,URINE NEG (NEG); URINE COLOR YELLOW (YELLW/STRAW); URINE LEUKOCYTE ESTERASE NEG (NEG)
[2017-07-25 18:01] LABS: AUTOMATED NEUTROPHIL # 3.7 TH/MM3 (1.8-7.7); BASOPHIL # 0.1 TH/MM3 (0-0.2); BASOPHIL % 0.9 % (0.0-2.0); EOSINOPHIL # 0.7 TH/MM3 (0-0.4); EOSINOPHIL % 9.8 % (0.0-4.0); HEMATOCRIT 40.3 % (35.0-46.0); HEMOGLOBIN 13.6 GM/DL (11.6-15.3); LYMPH % 27.4 % (9.0-44.0); LYMPHOCYTE # 1.8 TH/MM3 (1.0-4.8); MEAN CELL VOLUME 89.2 FL (80.0-100.0); MEAN CORPUSCULAR HEMOGLOBIN 30.1 PG (27.0-34.0); MEAN CORPUSCULAR HGB CONC 33.8 % (32.0-36.0); MEAN PLATELET VOLUME 9.5 FL (7.0-11.0); MONOCYTE # 0.4 TH/MM3 (0-0.9); NEUT % 55.9 % (16.0-70.0); PLATELET COUNT 208 TH/MM3 (150-450); RED BLOOD COUNT 4.51 MIL/MM3 (4.00-5.30); RED CELL DISTRIBUTION WIDTH 12.7 % (11.6-17.2); WHITE BLOOD COUNT 6.7 TH/MM3 (4.0-11.0)
[2017-07-25 18:11] LABS: CHLORIDE 105 MEQ/L (98-107); SODIUM (NA) 139 MEQ/L (136-145)
[2017-07-25 18:12] LABS: SQUAMOUS EPITHELIAL CELL URINE 0-5 /hpf (0-5); WBC, URINE 0-2 /hpf (0-5)
[2017-07-25 18:15] LABS: ALBUMIN 3.8 GM/DL (3.4-5.0); BICARBONATE 30.2 MEQ/L (21.0-32.0); BLOOD UREA NITROGEN 17 MG/DL (7-18); CALCIUM 9.4 MG/DL (8.5-10.1); GLUCOSE,RANDOM 85 MG/DL (74-106)
[2017-07-25 18:18] LABS: ALT (GPT) 28 U/L (10-53); AST (GOT) 16 U/L (15-37); CREATININE 0.74 MG/DL (0.50-1.00); GLOMERULAR FILTRATION RATE 85 ML/MIN (>89)
[2017-07-25 18:20] LABS: TOTAL BILIRUBIN ADULT 0.2 MG/DL (0.2-1.0); TOTAL PROTEIN 7.5 GM/DL (6.4-8.2)
[2017-07-25 18:21] LABS: ALKALINE PHOSPHATASE 51 U/L (45-117)
[2017-07-25] MEDS ORDERED: GAVISUS2 PO (18:32)
[2017-07-25] MEDS ORDERED: KETO10 PO (18:49)
[2017-07-25 18:57] VITALS: BP 120/74
[2017-07-25 18:58] VITALS: RESP 18
== END 2017-07-25 18:58 | disposition home or self-care (01) ==
LOC: PHED 16:23
DX: R10.13 Epigastric pain (principal); F41.0 Panic disorder [episodic paroxysmal anxiety]; E04.1 Nontoxic single thyroid nodule; Z88.5 Allergy status to narcotic agent; Z88.2 Allergy status to sulfonamides
CPT/HCPCS: 74176; 80053; 81001; 83690; 84703; 85025; 99284

== ENCOUNTER 2017-09-19 20:55 | Observation (INO) ==
--- NOTE | 2017-09-19 21:31 | ED ---
HPI General Chief Complaint: Chest Pain Stated Complaint: Chest pain Time Seen by Provider: 09/19/17 21:09 Source: patient Mode of arrival: ambulatory Limitations: no limitations History of Present Illness HPI narrative: The patient was seen and examined in the presence of the nurse. This patient complains of chest pain. She has had it on and off for 1 week. She saw her physician for and she has been set up for an outpatient stress test on Tuesday. However the pain became worse so she came to the ER. Pain is located in the left upper chest. Today felt like a dull aching pressure. No pleuritic symptoms. No cough or fever. No injury. Symptom severity is moderate. No alleviating factors. No exacerbating factors. Complete Quality Measures for STEMI Alert Patients Related Data Home Medications Medication Instructions Recorded Confirmed alprazolam [Xanax] 0.5 mg PO DAILY PRN 09/19/17 09/19/17 Allergies Allergy/AdvReac Type Severity Reaction Status Date / Time clotrimazole Allergy Intermediate Verified 07/25/17 16:35 nitrofurantoin Allergy Intermediate Verified 07/25/17 16:35 oxycodone Allergy Intermediate Verified 07/25/17 16:35 Sulfa (Sulfonamide Allergy Intermediate Verified 07/25/17 16:35 Antibiotics) sulfamethoxazole Allergy Intermediate Verified 07/25/17 16:35 trimethoprim Allergy Intermediate Verified 07/25/17 16:35 iodine Allergy Unknown Verified 07/25/17 16:35 Review of Systems Except as stated in HPI: all other systems reviewed are negative [facility] [place] Family History Family History Other Family history of acute myocardial infarction Social History Social History Substance History: No History of Abuse Smoking Status: Never smoker How Often Do You Have a Drink Containing Alcohol: Never Recent Out of Country Travel within the Last 8 Weeks: No Exam Narrative Exam Narrative: GENERAL: Well-nourished, well-developed patient in no apparent distress. SKIN: Focused skin assessment reveals no rash and nodules. Skin is Warm and dry. HEAD: Atraumatic. Normocephalic. EYES: Pupils equal and round. No scleral icterus. No injection or drainage. ENT: No nasal bleeding or discharge. Mucous membranes pink and moist. NECK: Trachea midline. No JVD. CARDIOVASCULAR: Regular rate and rhythm. No murmur appreciated. RESPIRATORY: No accessory muscle use. Clear to auscultation. Breath sounds equal bilaterally. GASTROINTESTINAL: Abdomen soft, non-tender, nondistended. Hepatic and splenic margins not palpable. MUSCULOSKELETAL: No obvious deformities. No clubbing. No cyanosis. No edema. NEUROLOGICAL: Awake and alert. No obvious cranial nerve deficits. Motor grossly within normal limits. Normal speech. PSYCHIATRIC: Appropriate mood and affect; insight and judgment normal. Course Initial Documented Vital Signs Temperature 98.4 F 09/19/17 21:00 Pulse Rate 80 09/19/17 21:00 Respiratory Rate 20 09/19/17 21:00 Blood Pressure 121/66 09/19/17 21:00 Pulse Oximetry 99 09/19/17 21:00 Last Documented Vital Signs Temperature 98.4 F 09/19/17 21:00 Pulse Rate 77 09/19/17 21:55 Respiratory Rate 20 09/19/17 21:55 Blood Pressure 121/66 09/19/17 21:00 Pulse Oximetry 99 09/19/17 21:55 Medical Decision Making MDM Narrative Medical decision making narrative: This patient has chest pain that will be evaluated. I gave her an aspirin. Her EKG is normal. Labs and x-ray ordered. She has strong family history of early CAD. She will be a 23 hour observation on telemetry to evaluate for cardiac cause of her symptoms. Initial workup here is negative including cardiac enzymes and x-ray and EKG. Call is been placed to the hospitalist to discuss Differential Diagnosis Differential Diagnosis: Differential diagnosis includes [place], angina, pericarditis , pleurisy, GERD, anxiety. Medical Records Medical records reviewed: Yes I reviewed the patient's medical records. Lab Data Lab results reviewed: Yes I reviewed the patient's lab results. Result diagrams: 09/19/17 21:45 09/19/17 21:45 Lab Results 09/19/17 09/19/17 09/19/17 Range/Units 21:45 21:45 21:45 CBC w Diff Auto diff final WBC 5.3 (4.0-11.0) th/mm3 RBC 4.43 (4.00-5.30) mil/mm3 Hgb 13.4 (11.6-15.3) gm/dL Hct 40.5 (35.0-46.0) % MCV 91.3 (80.0-100.0) fL MCH 30.2 (27.0-34.0) pg MCHC 33.1 (32.0-36.0) % RDW 12.9 (11.6-17.2) % Plt Count 215 (150-450) th/mm3 MPV 9.1 (7.0-11.0) fL Neut % (Auto) 45.9 (16.0-70.0) % Lymph % (Auto) 36.9 (9.0-44.0) % [place] % (Auto) 9.7 H (0.0-8.0) % Eos % (Auto) 6.5 H (0.0-4.0) % Baso % (Auto) 1.0 (0.0-2.0) % Neut # (Auto) 2.4 (1.8-7.7) th/mm3 Lymph # (Auto) 2.0 (1.0-4.8) th/mm3 [place] # (Auto) 0.5 (0.0-0.9) th/mm3 Eos # (Auto) 0.3 (0.0-0.4) th/mm3 Baso # (Auto) 0.1 (0.0-0.2) th/mm3 WBC Differential . Differential Comment . PT 10.5 (9.8-11.6) sec INR 1.0 Ratio APTT 28.5 (24.3-30.1) sec Sodium 139 (136-145) meq/L Potassium 4.0 (3.5-5.1) meq/L Chloride 105 (98-107) meq/L Carbon Dioxide 27.3 (21.0-32.0) meq/L Anion Gap 7 (5-15) meq/L BUN 19 H (7-18) mg/dL Creatinine 0.92 (0.50-1.00) mg/dL Estimated GFR 66 L (>89) mL/min Random Glucose 94 (74-106) mg/dL Calcium 8.8 (8.5-10.1) mg/dL Magnesium 2.3 (1.5-2.5) mg/dL Total Creatine Kinase 129 (26-192) U/L CK-MB (CK-2) 0.6 (0.5-3.6) ng/mL Troponin I Less than 0.02 L (0.02-0.05) ng/mL Imaging Data Radiologist's impression: Chest X-Ray 09/19/17 21:05 CONCLUSION: The lungs are clear. Discharge Plan Discharge Disposition Patient Disposition: 30 Still Patient Discharge Condition Condition: Stable Discharge Details Diagnosis: Atypical chest pain Physicians Team ED Provider: Cornell Bridges Primary Care Provider: UNKNOWN, Rxs /Orders / Referrals /Forms Prescriptions: No Action alprazolam [Xanax] 0.5 mg Tablet 0.5 mg PO DAILY PRN (Reason: Anxiety) RF: 0 Discharge Instructions Patient Printed Instructions: Chest Pain (ED) Status ED Status: With Doctor
--- NOTE | 2017-09-19 21:41 | XR ---
EXAM DATE: 09/19/2017 9:35 PM EDT AGE/SEX: 47 years / Female INDICATIONS: . Chest pain. CLINICAL DATA: This is the patient's initial encounter. Patient reports that signs and symptoms have been present for 1 day and indicates a pain score of 4/10. MEDICAL/SURGICAL HISTORY: None. Breast augmentation. COMPARISON: [facility], CHEST SINGLE AP, 01/11/2017. . FINDINGS: A single AP view of the chest demonstrates the lungs to be symmetrically aerated without evidence of mass, infiltrate or effusion. The cardiomediastinal contours are unremarkable. Osseous structures a re intact. CONCLUSION: The lungs are clear. Electronically signed by: Jeovanny Schwartz MD 09/19/2017 9:40 PM EDT
[2017-09-19 21:49] LABS: White Blood Count 5.3 th/mm3 (4.0-11.0)
[2017-09-19 21:50] LABS: Baso # (Auto) 0.1 th/mm3 (0.0-0.2); Eos # (Auto) 0.3 th/mm3 (0.0-0.4); Eos % (Auto) 6.5 % (0.0-4.0); Hematocrit 40.5 % (35.0-46.0); Hemoglobin 13.4 gm/dL (11.6-15.3); Lymph % (Auto) 36.9 % (9.0-44.0); Mean Corpuscular HGB Conc 33.1 % (32.0-36.0); Mean Corpuscular Hemoglobin 30.2 pg (27.0-34.0); Mean Corpuscular Volume 91.3 fL (80.0-100.0); Mean Platelet Volume 9.1 fL (7.0-11.0); Mono # (Auto) 0.5 th/mm3 (0.0-0.9); Mono % (Auto) 9.7 % (0.0-8.0); Neut # (Auto) 2.4 th/mm3 (1.8-7.7); Neut % (Auto) 45.9 % (16.0-70.0); Platelet Count 215 th/mm3 (150-450); Red Blood Count 4.43 mil/mm3 (4.00-5.30); Red Cell Distribution Width 12.9 % (11.6-17.2)
[2017-09-19 21:57] LABS: Chloride 105 meq/L (98-107); Sodium 139 meq/L (136-145)
[2017-09-19 21:59] LABS: Calcium 8.8 mg/dL (8.5-10.1)
[2017-09-19 22:00] LABS: Anion Gap 7 meq/L (5-15); Blood Urea Nitrogen 19 mg/dL (7-18); Carbon Dioxide 27.3 meq/L (21.0-32.0); Glucose,Random 94 mg/dL (74-106); Magnesium 2.3 mg/dL (1.5-2.5)
[2017-09-19 22:02] LABS: Activated Partial Thrombo Time 28.5 sec (24.3-30.1); Prothrombin Time 10.5 sec (9.8-11.6)
[2017-09-19 22:03] LABS: Glomerular Filtration Rate 66 mL/min (>89)
[2017-09-19 22:06] LABS: Creatine Kinase 129 U/L (26-192)
[2017-09-19 22:18] LABS: Creatine Kinase MB 0.6 ng/mL (0.5-3.6)
[2017-09-19] MEDS ORDERED: Morphine Inj 4 MG/ML Vial IV.PUSH PRN (22:55)
[2017-09-19] MEDS ORDERED: Acetaminophen 500 MG Tablet PO PRN (22:55)
[2017-09-19] MEDS ORDERED: Sod Chloride 0.9% Inj 1,000 ML IV.CONT SCH (23:00)
[2017-09-20 02:18] LABS: Creatine Kinase 105 U/L (26-192)
[2017-09-20 04:43] LABS: Creatine Kinase 103 U/L (26-192)
[2017-09-20] MEDS: ALPRAZolam 0.5 MG Tablet PO PRN ×2 (07:17→07:18)
--- NOTE | 2017-09-20 20:44 | ECG ---
Date Performed: 09/20/2017 Time Performed: 03:51:11 PTAGE: 47 years EKG: Sinus rhythm LOW QRS VOLTAGE IN PRECORDIAL LEADS BORDERLINE ECG PREVIOUS TRACING : 09/20/2017 01.06 No significant change when compared with previous DOCTOR: Shey Reed Interpretating Date/Time 09/20/2017 20:43:08
--- NOTE | 2017-09-20 20:45 | ECG ---
Date Performed: 09/20/2017 Time Performed: 01:06:29 PTAGE: 47 years EKG: Sinus rhythm LOW QRS VOLTAGE IN PRECORDIAL LEADS BORDERLINE ECG PREVIOUS TRACING : 09/19/2017 21.12 No significant change when compared with previous DOCTOR: Shey Reed Interpretating Date/Time 09/20/2017 20:45:31
--- NOTE | 2017-09-20 20:53 | ECG ---
Date Performed: 09/19/2017 Time Performed: 21:12:11 PTAGE: 47 years EKG: Sinus rhythm NORMAL ECG PREVIOUS TRACING : 01/11/2017 02.08 No significant change when compared with previous DOCTOR: Shey Reed Interpretating Date/Time 09/20/2017 20:52:27
== END 2017-09-20 07:32 | disposition left against medical advice (07) ==
LOC: PHED 20:55 → PHEDA 20:55 → PH3 20:55 → PHEDA 09-20 00:05 → PH3 09-20 00:12
PROVIDERS: ADMIT Hospitalist; ATTEND Hospitalist